=== PATIENT | male | born 1950 | race Caucasian/White ===

== ENCOUNTER 2016-08-29 10:29 | Outpatient (CLI) | payer MEDICARE, OTHER ==
[2015-08-29 12:29] VITALS: BP 146/98
[2016-08-29 11:17] LABS: eGFR (African) > 60; eGFR (Non-African) > 60
== END 2016-08-29 10:30 ==
LOC: LAB 10:29
PROVIDERS: ATTEND Family Medicine
DX: E78.5 Hyperlipidemia, unspecified (principal)
CPT/HCPCS: 36415; 80053; 80061

== ENCOUNTER 2017-07-23 09:57 | Outpatient (CLI) | payer MEDICARE, OTHER ==
[2015-08-29 12:29] VITALS: BP 146/98
[2017-07-23 12:17] LABS: eGFR (African) > 60; eGFR (Non-African) > 60
== END 2017-07-23 10:00 ==
LOC: LAB 09:57
PROVIDERS: ATTEND Family Medicine
DX: E78.5 Hyperlipidemia, unspecified (principal)
CPT/HCPCS: 36415; 80053; 80061

== ENCOUNTER 2019-03-26 09:34 | Outpatient (CLI) | payer MEDICARE, OTHER ==
[2015-08-29 12:29] VITALS: BP 146/98
[2019-03-26 11:45] LABS: eGFR (Non-African) > 60
[2019-03-26 11:46] LABS: A1C 5.7 % (<5.7); HDL 51 mg/dL (>40)
== END 2019-03-26 09:39 ==
LOC: LAB 09:34
PROVIDERS: ATTEND Family Medicine
DX: E11.9 Type 2 diabetes mellitus without complications (principal); Z79.4 Long term (current) use of insulin
CPT/HCPCS: 36415; 80053; 80061; 83036